=== PATIENT | male | born 1990 | race Caucasian/White ===

== ENCOUNTER 2017-08-07 13:28 | Emergency (ER) | payer OTHER ==
[2017-08-07] MEDS: ALBUTEROL 0.083% (NEB) 2.5 MG/3 ML AMP NEB (14:18)
[2017-08-07] MEDS: IPRATROPIUM (NEB) 0.5 MG/2.5 ML AMP NEB (14:18)
[2017-08-07] MEDS: predniSONE 20 MG TAB PO (14:27)
== END 2017-08-07 15:11 | disposition home or self-care (01) ==
LOC: FTE 13:28
DX: J30.2 Other seasonal allergic rhinitis (principal); J45.901 Unspecified asthma with (acute) exacerbation; F17.210 Nicotine dependence, cigarettes, uncomplicated
CPT/HCPCS: 71045; 94664; 99284-25